=== PATIENT | female | born 1945 | race Caucasian/White ===

== ENCOUNTER 2017-03-19 13:01 | Inpatient (IN) | payer OTHER ==
[2017-03-19] MEDS ORDERED: PHARMACY CONSULT - DOSE _____ XX SCH (19:41)
[2017-03-19 20:19] LABS: BASOPHILS # (AUTO) 0.1 X10^3/uL (0.0-0.1); BASOPHILS % (AUTO) 0.7 % (0.2-1.0); EOSINOPHILS # (AUTO) 0.3 x10^3/uL (0.0-0.2); EOSINOPHILS % (AUTO) 2.3 % (0.9-2.9); HEMATOCRIT 39.1 % (36.0-47.0); HEMOGLOBIN 12.8 g/dL (12.0-16.0); LYMPHOCYTES # (AUTO) 1.3 X10^3/uL (1.3-2.9); LYMPHOCYTES % (AUTO) 12.1 % (21.0-51.0); MEAN CORPUSCULAR HEMOGLOBIN 29.2 pg (27.0-34.0); MEAN CORPUSCULAR HGB CONC 32.8 g/dL (33.0-35.0); MEAN PLATELET VOLUME 8.2 fL (7.4-11.0); MONOCYTES # (AUTO) 0.7 x10^3/uL (0.3-0.8); MONOCYTES % (AUTO) 6.2 % (0.0-13.0); NEUTROPHILS # (AUTO) 8.4 x10^3/uL (2.2-4.8); NEUTROPHILS % (AUTO) 78.7 % (42.0-75.0); PLATELET COUNT 223 X10^3/uL (150.0-450.0); WHITE BLOOD COUNT 10.7 X10^3/uL (3.6-10.0)
[2017-03-19 20:39] LABS: ALANINE AMINOTRANSFERASE 25 Units/L (12-78); ALBUMIN 3.5 g/dL (3.4-5.0); ALKALINE PHOSPHATASE 127 Units/L (46-116); ASPARTATE AMINO TRANSFERASE 24 Units/L (15-37); BLOOD UREA NITROGEN 23 mg/dL (7-18); CALCIUM 9.2 mg/dL (8.5-10.1); CARBON DIOXIDE 25.2 mmol/L (21-32); CHLORIDE 103 mmol/L (98-107); CKMB % 1.9 % (<4); COR NA(FOR HYPERGLY) 140 mmol/L (136-145); CREATINE KINASE 52 Units/L (26-192); CREATINE KINASE MB < 1.0 ng/mL (0-4.0); CREATININE 1.19 mg/dL (0.55-1.02); GLUCOSE 124 mg/dL (65-99); SODIUM 139 mmol/L (136-145); TOTAL PROTEIN 7.5 g/dL (6.4-8.2); TROPONIN I < 0.02 ng/mL (0-1.5); eGFR BLACK RACES 58 (>60); eGFR NON BLACK RACES 48 (>60)
--- NOTE | 2017-03-19 21:09 | RAD ---
Chest AP portable Indication: Dyspnea and CHF. Comparison: August 28, 2015 chest radiograph. Findings: There is cardiomegaly. There is no pneumothorax, effusion or consolidation. Minimal increa sed interstitial markings with mild edema suggested. Impression: Cardiomegaly with early developing edema suggested. Followup PA and lateral chest as nee ded. Positioning and body habitus limits sensitivity somewhat. Reported By:
[2017-03-19 23:00] LABS: BILIRUBIN,URINE NEGATIVE (NEGATIVE); BLOOD/HEMOGLOBIN,URINE 1+ (NEGATIVE); GLUCOSE, URINE NEGATIVE (NEGATIVE); KETONES,URINE NEGATIVE (NEGATIVE); LEUKOCYTE ESTERASE ,URINE 3+ (NEGATIVE); NITRITES,URINE POSITIVE (NEGATIVE); PROTEIN,URINE 2+ (NEGATIVE); UROBILINOGEN,URINE NORMAL (NORMAL)
[2017-03-19] MEDS: LASIX IVP SCH ×2 (23:11→23:12)
[2017-03-19 23:13] LABS: APPEARANCE,URINE CLOUDY (CLEAR); COLOR,URINE YELLOW (YELLOW)
[2017-03-19 23:14] LABS: BACTERIA,URINE 1+ /HPF (NEGATIVE); SQUAMOUS EPITHELIAL CELL,UR RARE /HPF (NEGATIVE)
[2017-03-19] MEDS: HumuLIN R SUBCUT PRN (23:29)
[2017-03-19] MEDS: CORTISPORIN OTIC SUSP RIGHT EAR SCH (23:30)
[2017-03-20 02:36] LABS: CKMB % 1.9 % (<4); CREATINE KINASE 54 Units/L (26-192); TROPONIN I < 0.02 ng/mL (0-1.5)
[2017-03-20 06:24] LABS: BASOPHILS # (AUTO) 0.1 X10^3/uL (0.0-0.1); BASOPHILS % (AUTO) 1.1 % (0.2-1.0); EOSINOPHILS # (AUTO) 0.3 x10^3/uL (0.0-0.2); EOSINOPHILS % (AUTO) 2.8 % (0.9-2.9); HEMATOCRIT 39.7 % (36.0-47.0); HEMOGLOBIN 13.2 g/dL (12.0-16.0); LYMPHOCYTES # (AUTO) 1.3 X10^3/uL (1.3-2.9); LYMPHOCYTES % (AUTO) 14.4 % (21.0-51.0); MEAN CORPUSCULAR HEMOGLOBIN 29.7 pg (27.0-34.0); MEAN CORPUSCULAR HGB CONC 33.4 g/dL (33.0-35.0); MEAN PLATELET VOLUME 8.4 fL (7.4-11.0); MONOCYTES # (AUTO) 0.7 x10^3/uL (0.3-0.8); MONOCYTES % (AUTO) 7.7 % (0.0-13.0); NEUTROPHILS # (AUTO) 6.7 x10^3/uL (2.2-4.8); PLATELET COUNT 223 X10^3/uL (150.0-450.0); RED BLOOD COUNT 4.46 X10^6/uL (3.5-5.4); RED CELL DISTRIBUTION WIDTH 14.3 % (11.6-16.5); WHITE BLOOD COUNT 9.1 X10^3/uL (3.6-10.0)
--- NOTE | 2017-03-20 06:25 | RAD ---
AP Chest Indication: Followup CHF Comparison: 03/19/2017 Findings: The trachea is midline. The cardiac silhouette is moderately enlarged. There is increased prominenc e of the upper lobe pulmonary vessels consistent chronic pulmonary vascular congestion. The lungs ar e clear without focal infiltrate or effusion. The bony thorax is unremarkable. IMPRESSION: 1. Moderate cardiomegaly with pulmonary vascular congestion. No acute airspace disease. Reported By:
[2017-03-20 06:30] LABS: ALANINE AMINOTRANSFERASE 28 Units/L (12-78); ALBUMIN 3.5 g/dL (3.4-5.0); ALKALINE PHOSPHATASE 123 Units/L (46-116); ASPARTATE AMINO TRANSFERASE 22 Units/L (15-37); BLOOD UREA NITROGEN 24 mg/dL (7-18); CALCIUM 9.3 mg/dL (8.5-10.1); CARBON DIOXIDE 30.1 mmol/L (21-32); CHLORIDE 103 mmol/L (98-107); COR NA(FOR HYPERGLY) 142 mmol/L (136-145); CREATININE 1.21 mg/dL (0.55-1.02); GLUCOSE 125 mg/dL (65-99); SODIUM 141 mmol/L (136-145); TOTAL PROTEIN 7.7 g/dL (6.4-8.2); eGFR BLACK RACES 56 (>60); eGFR NON BLACK RACES 47 (>60)
[2017-03-20 06:43] LABS: CKMB % 1.5 % (<4); CREATINE KINASE 68 Units/L (26-192); CREATINE KINASE MB < 1.0 ng/mL (0-4.0); TROPONIN I < 0.02 ng/mL (0-1.5)
[2017-03-20] MEDS: CORTISPORIN OTIC SUSP RIGHT EAR SCH ×4 (09:14→20:50)
[2017-03-20] MEDS: LASIX IVP SCH (09:14)
[2017-03-20] MEDS: EFFEXOR XR 75 MG CAP PO SCH (15:00)
[2017-03-20] MEDS: HumuLIN R SUBCUT PRN (16:36)
[2017-03-20] MEDS ORDERED: GLUCOPHAGE ONE (20:06)
[2017-03-20] MEDS: CARDIZEM CD 360 MG PO SCH (20:22)
[2017-03-20] MEDS: EFFEXOR XR 150 MG CAP PO SCH (20:22)
[2017-03-20] MEDS: THEO-DUR TAB 300 MG PO SCH (20:23)
[2017-03-20] MEDS: GLUCOPHAGE PO SCH (20:23)
[2017-03-20] MEDS: SNACK - Diabetic Appropriate PO SCH (20:32)
[2017-03-20] MEDS: COUMADIN TAB 7.5 MG PO SCH (20:33)
--- NOTE | 2017-03-20 20:34 | DR.UPDATE ---
H&P Update History and Physical Update: HISTORY AND PHYSICAL UPDATE FOR ADMISSION 03/19/17 MS. PETE'S H&P WAS COMPLETED IN OUR OFFICE PRIOR TO ADMISSION. SHE HAS BEEN SEEN AND EXAMINED. PATIENT IS NOTED WITH SEVERE SHORTNESS OF BREATH AT REST. PATIENT IS UNABLE TO LIE FLAT DUE TO DYSPNEA. PATIENT REPORTS SYMPTOMS START GRADUALLY AND INCREASED IN SEVERITY. PATIENT IS OXYGEN DEPENDENT AT HOME. WE WILL ADMIT PATIENT FOR FURTHER TREATMENT. WE WILL START LASIX 40MG IV BID FOR TWO DOSES AND RECHECK A CHEST XRAY IN THE AM. WE WILL INSERT A NGUYEN CATHETER FOR STRICT I&O'S. WE WILL FOLLOW UP IN AM WITH LABS.
--- NOTE | 2017-03-20 20:39 | PCM.PROG ---
Progress Note - Progress Note for Day of Date: 03/20/17 - Subjective Subjective: PATIENT CONTINUES WITH SHORTNESS OF BREATH. PATIENT SITS UPRIGHT IN BED, UNABLE TO LIE FLAT. SHORTNESS OF BREATH IS SEVERE WITH EXERTION. PATIENT RECEIVED ONE DOSE OF LASIX LAST NIGHT AND WILL RECEIVE A SECOND DOSE THIS MORNING. ON AUSCULTATION, LUNGS ARE NOTED WITH WHEEZING THROUGHOUT. CHEST XRAY THIS MORNING REPORTS MODERATE CARDIOMEGALY WITH PULMONARY VASCULAR CONGESTION; NO AIRSPACE DISEASE. EKG: ATRIAL FIBRILLATION, RATE 84. CBC WNL. CMP WNL EXCEPT: BUN/CREAT 24/1.21, GFR 47, GLUCOSE 125, ALK PHOS 123. CARDIAC ENZYMES WNL. INR 1.25. WE WILL RESTART HOME MEDICATIONS, ADMINISTER ADDITIONAL TWO DOSES OF LASIX, CONTINUE SUPPLEMENTAL OXYGEN. WE WILL FOLLOW UP IN AM WITH LABS AND CHEST XRAY. - Past Medical Family Social History Past Med/Fam/Surg Hx: No changes since H&P Allergies: Allergies Penicillins Allergy (Verified 12/10/16 17:18) - Review of Systems ROS: No change since H&P - Vital Signs and I&O's Vital Signs: Temperature 98.1 F Pulse Rate [Apical] 99 Respiratory Rate 20 Blood Pressure [Left Arm] 129/60 Blood Pressure [Right Arm] 130/61 Blood Pressure 136/60 O2 Sat by Pulse Oximetry 96 Intake and Output: Intake & Output 03/18/17 03/19/17 03/20/17 03/21/17 11:59 11:59 11:59 11:59 Intake Total 470 360 Output Total 4650 1200 Balance -7520 -730 - Physical Exam Oriented: Normal, Time, Person, Place Eyes: Normal. negative: Blurred Vision, Diplopia, Discharge, Pain, Redness, Photophobia Ear: Normal. negative: Swelling, Ecchymosis, Hemotypanum, Abrasion, Laceration Nose: Normal. negative: Injected, Discharge, Blood Throat: Dry. negative: Tonsillar Hypertrophy, Exudate Respiratory: Generalized, Wheezes Cardiovascular: Normal. negative: Murmur, Edema : Normal. negative: Dysuria, Hematuria, Frequency, Discharge, Bleeding, Auscultation: Bowel Sounds: Normal. negative: Bruit Palpation: Normal. negative: Spleen Enlarged, Liver Enlarged, Mass Pulsatile Tenderness: Normal. negative: Rebound, Guarding, Rigidity Skin: Decreased Turgur. negative: Diaphoresis, Wound, Bruising, Ecchymosis Musculoskeletal: Instability Psychiatric: Normal Mood Description: Calm, Appropriate Affect: Normal Speech Pattern: Clear, Appropriate - Laboratory and Diagnostics Result Diagrams: 03/20/17 06:05 03/20/17 06:05 Labs: 03/19/17 22:38 Urine,Catheterized Urine Culture - Preliminary Laboratory WBC 9.1 X10^3/uL (3.6-10.0) 03/20/17 06:05 RBC 4.46 X10^6/uL (3.5-5.4) 03/20/17 06:05 Hgb 13.2 g/dL (12.0-16.0) 03/20/17 06:05 Hct 39.7 % (36.0-47.0) 03/20/17 06:05 MCV 89.0 fL (80.0-100.0) 03/20/17 06:05 MCH 29.7 pg (27.0-34.0) 03/20/17 06:05 MCHC 33.4 g/dL (33.0-35.0) 03/20/17 06:05 RDW 14.3 % (11.6-16.5) 03/20/17 06:05 Plt Count 223 X10^3/uL (150.0-450.0) 03/20/17 06:05 MPV 8.4 fL (7.4-11.0) 03/20/17 06:05 Neut % 74.0 % (42.0-75.0) 03/20/17 06:05 Lymph % 14.4 % (21.0-51.0) L 03/20/17 06:05 [place] % 7.7 % (0.0-13.0) 03/20/17 06:05 Eos % 2.8 % (0.9-2.9) 03/20/17 06:05 Baso % 1.1 % (0.2-1.0) H 03/20/17 06:05 Neut # 6.7 x10^3/uL (2.2-4.8) H 03/20/17 06:05 Lymph # 1.3 X10^3/uL (1.3-2.9) 03/20/17 06:05 [place] # 0.7 x10^3/uL (0.3-0.8) 03/20/17 06:05 Eos # 0.3 x10^3/uL (0.0-0.2) H 03/20/17 06:05 Baso # 0.1 X10^3/uL (0.0-0.1) 03/20/17 06:05 Absolute Nucleated RBC 0.0 /100WBC 03/20/17 06:05 INR Target Range - 03/20/17 14:20 INR 1.25 (0.8-1.3) 03/20/17 14:20 Sodium 141 mmol/L (136-145) 03/20/17 06:05 Corrected Sodium 142 mmol/L (136-145) 03/20/17 06:05 Potassium 4.7 mmol/L (3.5-5.1) 03/20/17 06:05 Chloride 103 mmol/L (98-107) 03/20/17 06:05 Carbon Dioxide 30.1 mmol/L (21-32) 03/20/17 06:05 BUN 24 mg/dL (7-18) H 03/20/17 06:05 Creatinine 1.21 mg/dL (0.55-1.02) H 03/20/17 06:05 Est GFR (MDRD) Af Amer 56 (>60) L 03/20/17 06:05 Est GFR (MDRD) Non-Af 47 (>60) L 03/20/17 06:05 Glucose 125 mg/dL (65-99) H 03/20/17 06:05 Calcium 9.3 mg/dL (8.5-10.1) 03/20/17 06:05 Corrected Calcium TNP 03/20/17 06:05 Total Bilirubin 0.40 mg/dL (0.2-1.0) 03/20/17 06:05 AST 22 Units/L (15-37) 03/20/17 06:05 ALT 28 Units/L (12-78) 03/20/17 06:05 Alkaline Phosphatase 123 Units/L (46-116) H 03/20/17 06:05 Creatine Kinase 68 Units/L (26-192) 03/20/17 06:05 CK-MB (CK-2) < 1.0 ng/mL (0-4.0) 03/20/17 06:05 CK/CKMB % Calc 1.5 % (<4) 03/20/17 06:05 Troponin I < 0.02 ng/mL (0-1.5) 03/20/17 06:05 Total Protein 7.7 g/dL (6.4-8.2) 03/20/17 06:05 Albumin 3.5 g/dL (3.4-5.0) 03/20/17 06:05 Globulin 4.2 g/dL (2.5-4.5) 03/20/17 06:05 Albumin/Globulin Ratio 0.8 Ratio (1.1-2.1) L 03/20/17 06:05 Specimen Type Catherized urine 03/19/17 22:38 Urine Color Yellow (YELLOW) 03/19/17 22:38 Urine Appearance Cloudy (CLEAR) 03/19/17 22:38 Urine pH 5.0 (5.0 - 8.0) 03/19/17 22:38 Ur Specific [place] 1.020 (1.000-1.030) 03/19/17 22:38 Urine Protein 2+ (NEGATIVE) 03/19/17 22:38 Urine Glucose (UA) Negative (NEGATIVE) 03/19/17 22:38 Urine Ketones Negative (NEGATIVE) 03/19/17 22:38 Urine Occult Blood 1+ (NEGATIVE) 03/19/17 22:38 Urine Nitrite Positive (NEGATIVE) 03/19/17 22:38 Urine Bilirubin Negative (NEGATIVE) 03/19/17 22:38 Urine Urobilinogen Normal (NORMAL) 03/19/17 22:38 Ur Leukocyte Esterase 3+ (NEGATIVE) 03/19/17 22:38 Urine RBC 2-6 /HPF (NEGATIVE) 03/19/17 22:38 Urine WBC 80-100 /HPF (NEGATIVE) 03/19/17 22:38 Ur Squamous Epith Cells Rare /HPF (NEGATIVE) 03/19/17 22:38 Urine Bacteria 1+ /HPF (NEGATIVE) 03/19/17 22:38 Ur Culture Indicated? Yes/culture set up 03/19/17 22:38 - Plan (1) Acute exacerbation of CHF (congestive heart failure) Status: Acute Qualifiers: Congestive heart failure type: C Plan: LASIX IV BID, CONTINUE SUPPLEMENTAL OXYGEN, MONITOR CHEST XRAY. (2) Atrial fibrillation Status: Chronic Qualifiers: Atrial fibrillation type: chronic Qualified Code(s): I48.2 - Chronic atrial fibrillation (3) CAD (coronary artery disease) Status: Chronic Qualifiers: Coronary Disease-Associated Artery/Lesion type: [place] artery [place] vs. transplanted heart: [place] heart Associated angina: without angina Qualified Code(s): I25.10 - Atherosclerotic heart disease of [place] coronary artery without angina pectoris (4) CHF (congestive heart failure) Status: Chronic Qualifiers: Congestive heart failure type: C Congestive heart failure chronicity: C (5) Chronic obstructive lung disease Status: Chronic (6) Depressive disorder Status: Chronic (7) Diabetes mellitus type 2 Status: Chronic (8) Essential hypertension Status: Chronic (9) GERD (gastroesophageal reflux disease) Status: Chronic Qualifiers: Esophagitis presence: E (10) History of ND (myocardial infarction) Status: Chronic (11) History of TIA (transient ischemic attack) Status: Chronic (12) History of angina Status: Chronic (13) Hyperlipidemia Status: Chronic (14) Stented coronary artery Status: Chronic
[2017-03-20] MEDS ORDERED: [UNRECOGNIZED DRUG - OTHER] PO SCH (21:00)
[2017-03-20] MEDS ORDERED: LASIX IVP ONE (21:00)
[2017-03-21 05:41] LABS: BASOPHILS # (AUTO) 0.1 X10^3/uL (0.0-0.1); EOSINOPHILS # (AUTO) 0.3 x10^3/uL (0.0-0.2); EOSINOPHILS % (AUTO) 2.4 % (0.9-2.9); HEMATOCRIT 42.4 % (36.0-47.0); HEMOGLOBIN 14.1 g/dL (12.0-16.0); LYMPHOCYTES # (AUTO) 2.1 X10^3/uL (1.3-2.9); LYMPHOCYTES % (AUTO) 16.3 % (21.0-51.0); MEAN CORPUSCULAR HEMOGLOBIN 29.6 pg (27.0-34.0); MEAN CORPUSCULAR HGB CONC 33.1 g/dL (33.0-35.0); MEAN CORPUSCULAR VOLUME 89.3 fL (80.0-100.0); MEAN PLATELET VOLUME 8.2 fL (7.4-11.0); MONOCYTES # (AUTO) 0.9 x10^3/uL (0.3-0.8); MONOCYTES % (AUTO) 7.2 % (0.0-13.0); NEUTROPHILS # (AUTO) 9.3 x10^3/uL (2.2-4.8); NEUTROPHILS % (AUTO) 73.1 % (42.0-75.0); PLATELET COUNT 294 X10^3/uL (150.0-450.0); RED BLOOD COUNT 4.75 X10^6/uL (3.5-5.4); RED CELL DISTRIBUTION WIDTH 13.9 % (11.6-16.5); WHITE BLOOD COUNT 12.8 X10^3/uL (3.6-10.0)
[2017-03-21 05:55] LABS: ALANINE AMINOTRANSFERASE 26 Units/L (12-78); ALBUMIN 3.6 g/dL (3.4-5.0); ALKALINE PHOSPHATASE 130 Units/L (46-116); ASPARTATE AMINO TRANSFERASE 24 Units/L (15-37); BLOOD UREA NITROGEN 27 mg/dL (7-18); CALCIUM 9.3 mg/dL (8.5-10.1); CARBON DIOXIDE 23.9 mmol/L (21-32); CHLORIDE 100 mmol/L (98-107); COR NA(FOR HYPERGLY) 142 mmol/L (136-145); CREATININE 1.53 mg/dL (0.55-1.02); GLUCOSE 272 mg/dL (65-99); SODIUM 138 mmol/L (136-145); TOTAL PROTEIN 8.1 g/dL (6.4-8.2); eGFR BLACK RACES 43 (>60); eGFR NON BLACK RACES 36 (>60)
[2017-03-21] MEDS: HumuLIN R SUBCUT PRN (06:04)
--- NOTE | 2017-03-21 07:15 | RAD ---
HISTORY: Shortness of breath Study: Single-view chest Comparison: March 20, 2017 Findings: The trachea is midline. The cardiac silhouette is enlarged with a tortuous thoracic aorta. Persist ent interstitial and vascular changes consistent with underlying CHF. The findings are essentially unchanged compared to prior examination. The bony thorax is unremarkable. IMPRESSION: Unchanged findings consistent with CHF. Reported By:
[2017-03-21] MEDS ORDERED: LASIX IVP ONE ×2 (09:00→17:46)
[2017-03-21] MEDS ORDERED: GLUCOPHAGE ONE ×2 (09:00→20:38)
[2017-03-21] MEDS: GLUCOPHAGE PO SCH ×2 (09:07→20:57)
[2017-03-21] MEDS: EFFEXOR XR 75 MG CAP PO SCH (09:07)
[2017-03-21] MEDS: CORTISPORIN OTIC SUSP RIGHT EAR SCH ×4 (09:09→20:59)
[2017-03-21 10:48] VITALS: BMI 52.4
[2017-03-21] MEDS ORDERED: LEVAQUIN PREMIX IV 500 MG 500 MG/100 ML BAG IV ONE (17:45)
[2017-03-21] MEDS: CARDIZEM CD 360 MG PO SCH (20:56)
[2017-03-21] MEDS: THEO-DUR TAB 300 MG PO SCH (20:56)
[2017-03-21] MEDS: EFFEXOR XR 150 MG CAP PO SCH (20:56)
[2017-03-21] MEDS: SNACK - Diabetic Appropriate PO SCH (20:56)
[2017-03-21] MEDS: COUMADIN TAB 7.5 MG PO SCH (20:57)
--- NOTE | 2017-03-22 06:48 | RAD ---
Chest AP portable Indication: Dyspnea. CHF. Findings: There is no pneumothorax or effusion. No dense consolidation seen. Heart size is prominent . Increased interstitial markings noted. Body habitus and positioning limits sensitivity somewhat. Impression: Cardiomegaly and mild edema similar to the prior. Reported By:
[2017-03-22 06:57] LABS: BASOPHILS # (AUTO) 0.1 X10^3/uL (0.0-0.1); BASOPHILS % (AUTO) 0.6 % (0.2-1.0); EOSINOPHILS # (AUTO) 0.1 x10^3/uL (0.0-0.2); EOSINOPHILS % (AUTO) 0.4 % (0.9-2.9); HEMATOCRIT 41.4 % (36.0-47.0); HEMOGLOBIN 13.6 g/dL (12.0-16.0); LYMPHOCYTES # (AUTO) 1.3 X10^3/uL (1.3-2.9); LYMPHOCYTES % (AUTO) 9.2 % (21.0-51.0); MEAN CORPUSCULAR HEMOGLOBIN 29.2 pg (27.0-34.0); MEAN CORPUSCULAR HGB CONC 32.9 g/dL (33.0-35.0); MEAN CORPUSCULAR VOLUME 88.8 fL (80.0-100.0); MEAN PLATELET VOLUME 8.6 fL (7.4-11.0); MONOCYTES # (AUTO) 0.8 x10^3/uL (0.3-0.8); MONOCYTES % (AUTO) 5.9 % (0.0-13.0); NEUTROPHILS % (AUTO) 83.9 % (42.0-75.0); PLATELET COUNT 274 X10^3/uL (150.0-450.0); RED BLOOD COUNT 4.66 X10^6/uL (3.5-5.4); RED CELL DISTRIBUTION WIDTH 14.2 % (11.6-16.5); WHITE BLOOD COUNT 14.3 X10^3/uL (3.6-10.0)
[2017-03-22 07:20] LABS: ALANINE AMINOTRANSFERASE 29 Units/L (12-78); ALBUMIN 3.6 g/dL (3.4-5.0); ALKALINE PHOSPHATASE 128 Units/L (46-116); ASPARTATE AMINO TRANSFERASE 31 Units/L (15-37); BLOOD UREA NITROGEN 38 mg/dL (7-18); CALCIUM 9.4 mg/dL (8.5-10.1); CARBON DIOXIDE 26.7 mmol/L (21-32); CHLORIDE 98 mmol/L (98-107); COR NA(FOR HYPERGLY) 139 mmol/L (136-145); CREATININE 1.53 mg/dL (0.55-1.02); GLUCOSE 182 mg/dL (65-99); SODIUM 137 mmol/L (136-145); eGFR BLACK RACES 43 (>60); eGFR NON BLACK RACES 36 (>60)
[2017-03-22 08:40] VITALS: BP 128/59
== END 2017-03-22 08:55 | disposition home or self-care (01) | DRG 293 ==
LOC: MED/SURG 13:01
PROVIDERS: ADMIT Internal Medicine; ATTEND Internal Medicine
DX: I50.9 Heart failure, unspecified (principal); I48.2 Chronic atrial fibrillation; Z79.01 Long term (current) use of anticoagulants; E11.65 Type 2 diabetes mellitus with hyperglycemia; E78.2 Mixed hyperlipidemia; E66.01 Morbid (severe) obesity due to excess calories; F32.89 Other specified depressive episodes; R06.02 Shortness of breath; R06.09 Other forms of dyspnea; Z99.81 Dependence on supplemental oxygen; I51.7 Cardiomegaly; I25.10 Atherosclerotic heart disease of native coronary artery without angina pectoris; I10 Essential (primary) hypertension; K21.9 Gastro-esophageal reflux disease without esophagitis; R26.89 Other abnormalities of gait and mobility
CPT/HCPCS: 36415; 71010; 80053; 81001; 82550; 82553; 84484; 85025; 85610; 87086; 87088; 87186; 93005; 94760; A4216; A4222; J1815; J1940; J1956